=== PATIENT | female | born 1985 | race Caucasian/White ===

== ENCOUNTER 2021-10-11 11:08 | Emergency (ER) | payer OTHER ==
[~2021-10-11] VITALS: Ht 162.6 cm; Wt 68.5 kg
[2021-10-11 11:18] VITALS: BP 138/100
--- NOTE | 2021-10-11 11:26 | NUR ---
pt ambulated to bed 02
--- NOTE | 2021-10-11 11:48 | NUR ---
36 y/o F BIB self from home c/o abdominal cramping, vaginal bleeding since yesterday. Patient A&Ox4, ambulatory, states light bleeding yesterday that progressively worsen to heavy bleeding +4 "quarter size clots with tissue." Patient states brown blood this morning changing 1 pad today in 4 hours. G4 T2 L2. LPM: 09/20/21. Pt states seen by OB yesterday and advised she is 8 weeks . Pt denies fever, chills, dysuria, SOB, chest pain, injury/fall, urinary symptoms, cold-like symptoms. Pt placed into a gown. Bed locked in lowest position, side rails x 1, call light in reach. PMH/Sx/Meds: Denies NKDA
--- NOTE | 2021-10-11 12:16 | NUR ---
Lab at bedside
--- NOTE | 2021-10-11 12:25 | NUR ---
US tech at bedside
[2021-10-11 12:43] LABS: APPEARANCE,URINE CLOUDY (CLEAR); BILIRUBIN,URINE NEGATIVE (NEGATIVE); BLOOD, URINE 3+ (NEGATIVE); COLOR,URINE RED (YELLOW); LEUKOCYTE ESTERASE ,URINE 2+ (NEGATIVE); NITRITE, URINE POSITIVE (NEGATIVE); UGLUCOSE NEGATIVE (NEGATIVE)
[2021-10-11 12:57] LABS: RBC,URINE >100 /HPF (0-5); WBC,URINE 60-80 /HPF (0-5)
[2021-10-11] MEDS ORDERED: ACET-10509 PO (14:38)
[2021-10-11] MEDS ORDERED: CEPH-588 PO (14:38)
[2021-10-11] MEDS: cephALEXin 500 MG CAP PO ONE (14:58)
[2021-10-11] MEDS: ACETAMINOPHEN 325 MG TAB PO ONE (15:01)
[2021-10-11 15:02] VITALS: BP 117/60
--- NOTE | 2021-10-11 15:02 | NUR ---
Patient discharged with v/s stable. Written and verbal after care instructions given and explained. Patient alert, oriented and verbalized understanding of instructions. Ambulatory with steady gait. All questions addressed prior to discharge. ID band removed. Patient advised to follow up with PMD. Rx of aceteminophen, cephalexin (sent) given. Patient educated on indication of medication including possible reaction and side effects. Opportunity to ask questions provided and answered.
== END 2021-10-11 15:02 | disposition home or self-care (01) ==
LOC: MED 11:08
DX: O23.41 Unspecified infection of urinary tract in pregnancy, first trimester (principal); O20.8 Other hemorrhage in early pregnancy; Z3A.08 8 weeks gestation of pregnancy; Z79.899 Other long term (current) drug therapy
CPT/HCPCS: 36415; 76801; 81001; 81025; 84702; 86900; 86901; 87086; 99284; Q0092

== ENCOUNTER 2022-05-14 09:28 | Emergency (ER) | payer OTHER ==
[~2022-05-14] VITALS: Ht 162.6 cm; Wt 64.1 kg
[~2022-05-14 09:28] MED LIST: ACET-10509 PO; CEPH-588 PO
[2022-05-14 09:42] VITALS: BP 120/65
[2022-05-14 11:44] LABS: BASOPHILS % (AUTO) 0.5 % (0.0-2.0); EOSINOPHILS % (AUTO) 0.3 % (0.0-4.0); HEMATOCRIT 40.5 % (36-48); HEMOGLOBIN 13.3 g/dL (12.0-16.0); LYMPHOCYTES # (AUTO) 1.6 K/uL (2.5-16.5); LYMPHOCYTES % (AUTO) 21.8 % (20.5-51.1); MEAN CORPUSCULAR HEMOGLOBIN 29 pg (27-31); MEAN CORPUSCULAR HGB CONC 33 g/dL (33-37); MONOCYTES # (AUTO) 0.5 K/uL (0.8-1.0); MONOCYTES % (AUTO) 6.2 % (1.7-9.3); NEUTROPHILS # (AUTO) 5.3 K/uL (1.8-7.7); NEUTROPHILS % (AUTO) 71.2 % (42.2-75.2); PLATELET COUNT (AUTO) 218 K/uL (140-450); RED BLOOD CELL COUNT(AUTO) 4.61 MIL/uL (4.20-5.40); RED CELL DISTRIBUTION WIDTH 14.5 % (11.6-13.7); WHITE BLOOD COUNT (AUTO) 7.4 K/uL (4.8-10.8)
[2022-05-14 13:37] VITALS: BP 122/50
== END 2022-05-14 13:37 | disposition home or self-care (01) ==
LOC: MED 09:28
DX: O20.0 Threatened abortion (principal); Z3A.01 Less than 8 weeks gestation of pregnancy
CPT/HCPCS: 76801; 81002; 81025; 84702; 85025; 86900; 86901; 99284; Q0092

== ENCOUNTER 2024-07-25 17:14 | Emergency (ER) | payer OTHER ==
[~2024-07-25] VITALS: Ht 157.5 cm; Wt 80.3 kg
[~2024-07-25 17:14] MED LIST changes: -ACET-10509 PO; +ACET500T99 PO
[2024-07-25 17:15] VITALS: BP 123/63; PULSE 102; RESP 20; TEMP 100.3; O2SAT 96
[2024-07-25] MEDS ORDERED: CEPH-588 PO (18:02)
[2024-07-25] MEDS ORDERED: IBUP-2213 PO (18:02)
[2024-07-25] MEDS: cephALEXin 500 MG CAP PO ONE (18:03)
[2024-07-25] MEDS: KETOROLAC 30 MG/ML VIAL IM ONE (18:05)
[2024-07-25 18:07] VITALS: BP 123/63; PULSE 102; RESP 20; TEMP 100.3; O2SAT 96
== END 2024-07-25 18:07 | disposition home or self-care (01) ==
LOC: MED 17:14
DX: L03.317 Cellulitis of buttock (principal); Z79.899 Other long term (current) drug therapy
CPT/HCPCS: 81025; 96372; 99283; J1885